=== PATIENT | male | born 1985 | race Two or more races ===

== ENCOUNTER 2017-10-11 04:01 | Emergency (ER) | payer OTHER ==
[~2017-10-11] VITALS: Ht 167.6 cm; Wt 94.3 kg
== END 2017-10-11 04:55 ==
LOC: ER 04:03
DX: F10.120 Alcohol abuse with intoxication, uncomplicated (principal); F17.210 Nicotine dependence, cigarettes, uncomplicated; Z02.89 Encounter for other administrative examinations

== ENCOUNTER 2020-11-28 18:38 | Emergency (ER) | payer OTHER ==
[~2020-11-28] VITALS: Ht 170.2 cm; Wt 78.9 kg
[2020-11-28 18:39] VITALS: BP 136/92
[2020-11-28] MEDS ORDERED: IBUPROFEN 600 MG TAB PO ONE (19:30)
== END 2020-11-28 20:00 ==
LOC: ER 18:42
DX: M79.10 Myalgia, unspecified site (principal); M25.531 Pain in right wrist; M25.512 Pain in left shoulder; M25.511 Pain in right shoulder; F17.210 Nicotine dependence, cigarettes, uncomplicated; Z88.0 Allergy status to penicillin; Y04.2XXA Assault by strike against or bumped into by another person, initial encounter; Y93.89 Activity, other specified; Y92.89 Other specified places as the place of occurrence of the external cause; Y99.8 Other external cause status